=== PATIENT | male | born 1965 | race Caucasian/White ===

== ENCOUNTER → 2023-10-06 08:33 | Outpatient (BNVA) | payer BC, SELFPAY | PROVIDERS: PCP Family Medicine; Visit Provider Family Medicine | DX: Z13.6 Encounter for screening for cardiovascular disorders (principal); R35.1 Nocturia; R68.82 Decreased libido; L03.90 Cellulitis, unspecified; F17.219 Nicotine dependence, cigarettes, with unspecified nicotine-induced disorders; M10.9 Gout, unspecified; Z79.899 Other long term (current) drug therapy | CPT/HCPCS: 80053; 80061; 84153; 84403; 84443; 84550; 85025 ==